=== PATIENT | female | born 1975 | race African-American/Black ===

== ENCOUNTER 2017-03-29 16:14 | Emergency (ER) | payer OTHER ==
[~2017-03-29] VITALS: Ht 177.8 cm; Wt 129.7 kg
[2017-03-29] MEDS ORDERED: ZOFRAN ODT4 MG PO (16:30)
[2017-03-29] MEDS ORDERED: NORCO 5-325 TA1 EACH PO (16:30)
[2017-03-29] MEDS ORDERED: ONDANSETRON HCL4 M2 PO (16:30)
[2017-03-29] MEDS ORDERED: FLEXERIL PO (16:59)
[2017-03-29 17:09] VITALS: BP 135/79
== END 2017-03-29 17:10 | disposition home or self-care (01) ==
LOC: ER 16:14
DX: M54.5 Low back pain (principal); E66.01 Morbid (severe) obesity due to excess calories; Z68.41 Body mass index [BMI] 40.0-44.9, adult; Z88.6 Allergy status to analgesic agent